=== PATIENT | male | born 1980 | race Caucasian/White ===

== ENCOUNTER 2021-02-20 23:03 | Emergency (ER) | payer OTHER ==
[~2021-02-20] VITALS: Ht 175.3 cm; Wt 75.0 kg
[2021-02-20 23:29] VITALS: BP 130/95
== END 2021-02-21 00:16 | disposition home or self-care (01) ==
LOC: ED 23:08
DX: T40.1X1A Poisoning by heroin, accidental (unintentional), initial encounter (principal); T43.621A Poisoning by amphetamines, accidental (unintentional), initial encounter; F17.210 Nicotine dependence, cigarettes, uncomplicated; Z72.9 Problem related to lifestyle, unspecified; F11.20 Opioid dependence, uncomplicated; Y92.9 Unspecified place or not applicable
CPT/HCPCS: 99406